=== PATIENT | male | born 1960 | race Caucasian/White ===

== ENCOUNTER 2017-07-05 04:24 | Emergency (ER) | payer OTHER, BC ==
[~2017-07-05] VITALS: Ht 172.7 cm; Wt 86.6 kg
[~2017-07-05 04:24] MED LIST: MOBIC7.5 MG PO
[2017-07-05 06:11] VITALS: BP 120/61
== END 2017-07-05 06:11 | disposition home or self-care (01) ==
LOC: EME 04:24
DX: S76.912A Strain of unspecified muscles, fascia and tendons at thigh level, left thigh, initial encounter (principal); W00.0XXA Fall on same level due to ice and snow, initial encounter; K21.9 Gastro-esophageal reflux disease without esophagitis; Z88.0 Allergy status to penicillin
CPT/HCPCS: 99281; 99283